=== PATIENT | female | born 1970 | race Caucasian/White ===

== ENCOUNTER 2017-06-29 13:46 | Emergency (ER) | payer OTHER ==
[2017-06-29] MEDS ORDERED: ALBUTEROL 3 ML DEYVIAL IH ONE (14:04)
--- NOTE | 2017-06-29 14:04 | EDPHY ---
H & P Time Seen by Provider: 06/29/17 13:53 HPI/ROS: Chief Complaint: Cough, shortness of breath HPI: 46-year-old woman with 2 days of upper respiratory congestion, sore throat , cough. Patient states that she woke up gasping moved from sleep today as a sensation she can't get enough air. She has had a cough which is productive of yellowish sputum. She has had some subjective chills but has not checked her temperature. No nausea or vomiting. No chest pain. Symptoms are worse when she lays down flat. No chest pain. Symptoms are mildly exertional. No leg pain or swelling. Was on a car trip last week has not had any symptoms since that time. She does not smoke. ROS: 10 point Review of Systems is negative except as noted in the HPI. PMH: Denies Social History: No smoking, no alcohol, rare marijuana, none recently Family History: non-contributory Physical Exam: Gen: Awake, Alert, No Distress, obese HEENT: Nose: no rhinorrhea Eyes: PERRLA, EOMI Mouth: Moist mucosa Neck: Supple, no JVD Chest: nontender, mild diffuse expiratory wheeze, no focal rales or rhonchi, good air movement Heart: S1, S2 normal, no murmur Abd: Soft, non-tender, no guarding Back: no CVA tenderness, no midline tenderness Ext: no edema, non-tender Skin: no rash Neuro: CN II-XII intact, Sensation grossly intact, Strength 5/5 in bilateral upper and lower extremities Constitutional: Initial Vital Signs Temperature (C) 37.2 C 06/29/17 13:56 Heart Rate 94 06/29/17 13:56 Respiratory Rate 20 06/29/17 13:56 Blood Pressure 160/117 H 06/29/17 13:56 O2 Sat (%) 95 06/29/17 13:56 O2 Delivery Mode Room Air Allergies/Adverse Reactions: Penicillins Allergy (Verified 06/29/17 14:02) Sulfa (Sulfonamide Antibiotics) Allergy (Verified 06/29/17 14:02) Home Medications: Medication Instructions Recorded Albuterol [Proventil Inhaler HFA 1 - 2 puffs IH Q4H PRN #1 mdi 06/29/17 (*)] Bcp 06/29/17 Medical Decision Making - Diagnostics Imaging Results: Imaging Impressions Chest X-Ray 06/29/17 14:00 Impression: Prominence of perihilar interstitial markings and peribronchial cuffing. Findings are nonspecific but can be seen with bronchitis, reactive airway disease, or viral process. ED Course/Re-evaluation: No acute infiltrate on her chest x-ray. She is improved after albuterol neb. Symptoms consistent with upper respiratory infection and bronchitis. She is not hypoxic. She is not tachycardic. She is not pleuritic. Will will follow up with primary care physician for any concerns. - Data Points Medications Given: Discontinued Medications Albuterol (Proventil Neb) 3 ml IH EDNOW ONE Stop: 06/29/17 14:05 Last Admin: 06/29/17 14:11 Dose: 3 ml Departure - Departure Disposition: Home, Routine, Self-Care Clinical Impression: Acute bronchitis Condition: Good Instructions: Albuterol (By breathing), Acute Bronchitis (ED) Additional Instructions: You may use the albuterol inhaler, 2 puffs every 2-4 hours as needed for cough or wheeze. Always use a spacer device with your inhaler. You may take [id number] cough and cold medications for your symptoms. Follow up with your primary care physician in 2-3 days if symptoms are not improving. Return to the emergency department for worsening shortness of breath, cough, fevers or chills, or any other concerns. Referrals: Isabel Mario MD [Primary Care Provider] - As per Instructions Prescriptions: Albuterol [Proventil Inhaler HFA (*)] 1 - 2 puffs IH Q4H PRN #1 mdi PRN Reason: Cough, Moderate
[2017-06-29 14:50] VITALS: BP 150/80
== END 2017-06-29 14:49 | disposition home or self-care (01) ==
LOC: CED 13:46
DX: J20.9 Acute bronchitis, unspecified (principal)
CPT/HCPCS: 71046-PO; J7613

== ENCOUNTER → 2017-11-13 | Outpatient (CLI) | payer OTHER | LOC: CIMAGING 08:03 | PROVIDERS: ATTEND Family Medicine | DX: K76.0 Fatty (change of) liver, not elsewhere classified (principal); R16.0 Hepatomegaly, not elsewhere classified; K80.20 Calculus of gallbladder without cholecystitis without obstruction; K83.8 Other specified diseases of biliary tract | CPT/HCPCS: 76705-PO ==